=== PATIENT | male | born 1990 | race Caucasian/White ===

== ENCOUNTER → 2023-01-13 | Day surgery (SDC) | payer OTHER ==
[~2023-01-13] MED LIST: 0.9% SODIUM CHLORIDE 10 ML VIAL IVP ONE; BUPIVACAINE 0.25%/EPI 1:200,000/PF 10 ML VIAL ONE; CeFAZolin 2 GM/DEXTROSE 50 ML IV ONE; EPHEDrine SULFATE 50 MG/ML VIAL IM ONE; ETHYL ALCOHOL 62% ANTISEPTIC NASAL SANITIZER 0.6 ML AMPUL NASAL ONE; FentaNYL CITRATE PF 100 MCG/2 ML VIAL IVP ONE; GLYCOPYRROLATE 0.2 MG/ML VIAL IM ONE; HYDROmorphone HCL 2 MG/ML SYRINGE IVP ONE; LIDOCAINE/PF 2% 5 ML VIAL IM ONE; MIDAZOLAM HCL 2 MG/2 ML VIAL IVP ONE; NOCURR; ONDANSETRON HCL 4 MG/2 ML VIAL IVP ONE; PROPOFOL 1% 20 ML VIAL IVP ONE; RINGERS SOLUTION,LACTATED 1,000 ML IV ONE; ROCURONIUM BROMIDE 10 MG/ML 5 ML VIAL IVP ONE; SODIUM CHLORIDE 0.9% 1,000 ML ONE
[2023-01-13 06:31] LABS: COVID AG,FIA SOURCE NASOPHARYNGEAL
== END | disposition still patient (30) ==
LOC: SURGERY 05:29
PROVIDERS: ATTEND Surgery
DX: K80.10 Calculus of gallbladder with chronic cholecystitis without obstruction (principal); Z20.822 Contact with and (suspected) exposure to COVID-19; F17.210 Nicotine dependence, cigarettes, uncomplicated; Z86.19 Personal history of other infectious and parasitic diseases
CPT/HCPCS: 47562; 88304; 87426; J3490 ×5; J2704; J0690 ×2; J3010; J1170; J2250; J2405; J7120; J7030; C9803